=== PATIENT | female | born 1985 | race American Indian/Alaskan Native ===

== ENCOUNTER 2018-03-12 10:37 | Emergency (ER) | payer SELFPAY ==
[2018-03-12 11:03] VITALS: BP 141/78
--- NOTE | 2018-03-12 11:48 | Emergency Department Report ---
ED ENT HPI - General Chief complaint: Medical Clearance Stated complaint: TOOTHACHE Time Seen by Provider: 03/12/18 11:45 Source: patient Mode of arrival: Ambulatory Limitations: No Limitations - History of Present Illness Initial comments: 32-year-old female past medical history obesity, asthma presents with complaint of right upper incisor discomfort. Patient states she has mouthguard/and this line which was adjusted within the last week. Patient states that since she inserted new mouthguard her right upper incisor has been aching. Patient has a sensitivity to cold and warm foods. Patient denies any pus or blood drainage from mouth. Patient denies any difficulty breathing. States that eating is somewhat painful when food makes contact with her right upper incisor. No trismus or drooling, patient speaking in full sentences. MD complaint: tooth pain Onset/Timin -: week(s) Severity: moderate Severity scale (0 -10): 6 Quality: aching Consistency: intermittent Worsens with: eating Associated Symptoms: toothache - Related Data Home Medications Medication Instructions Recorded Confirmed Last Taken Vitamin 1 tab PO DAILY 02/06/16 02/06/16 Unknown Valtrex 1 g PO DAILY 02/06/16 02/06/16 02/05/16 20:00 Previous Rx's Medication Instructions Recorded Last Taken Type Ibuprofen [Motrin 600 MG tab] 600 mg PO Q8H PRN #30 tablet 02/07/16 Unknown Rx Lidocain2.5%/Prilocai2.5% [Emla] 5 gm TRANSDERMA ONCE #1 tube 02/07/16 Unknown Rx Benzocaine [Orajel Liquid 20%] 1 ml MM Q6HR PRN #1 bottle 03/12/18 Unknown Rx Ibuprofen [Motrin] 800 mg PO Q8HR PRN #25 tablet 03/12/18 Unknown Rx Allergies Allergy/AdvReac Type Severity Reaction Status Date / Time No Known Allergies Allergy Verified 02/06/16 18:04 ED Dental HPI - General Chief complaint: Medical Clearance Stated complaint: TOOTHACHE Time Seen by Provider: 03/12/18 11:45 Source: patient Mode of arrival: Ambulatory Limitations: No Limitations - Related Data Home Medications Medication Instructions Recorded Confirmed Last Taken Vitamin 1 tab PO DAILY 02/06/16 02/06/16 Unknown Valtrex 1 g PO DAILY 02/06/16 02/06/16 02/05/16 20:00 Previous Rx's Medication Instructions Recorded Last Taken Type Ibuprofen [Motrin 600 MG tab] 600 mg PO Q8H PRN #30 tablet 02/07/16 Unknown Rx Lidocain2.5%/Prilocai2.5% [Emla] 5 gm TRANSDERMA ONCE #1 tube 02/07/16 Unknown Rx Benzocaine [Orajel Liquid 20%] 1 ml MM Q6HR PRN #1 bottle 03/12/18 Unknown Rx Ibuprofen [Motrin] 800 mg PO Q8HR PRN #25 tablet 03/12/18 Unknown Rx Allergies Allergy/AdvReac Type Severity Reaction Status Date / Time No Known Allergies Allergy Verified 02/06/16 18:04 ED Review of Systems ROS: Stated complaint: TOOTHACHE Other details as noted in HPI Constitutional: denies: chills, fever Eyes: denies: eye pain, eye discharge, vision change ENT: dental pain. denies: ear pain, throat pain Respiratory: denies: cough, shortness of breath, wheezing Cardiovascular: denies: chest pain, palpitations Endocrine: no symptoms reported Gastrointestinal: denies: abdominal pain, nausea, diarrhea Genitourinary: denies: urgency, dysuria, discharge Musculoskeletal: denies: back pain, joint swelling, arthralgia Skin: denies: rash, lesions Neurological: denies: headache, weakness, paresthesias Psychiatric: denies: anxiety, depression Hematological/Lymphatic: denies: easy bleeding, easy bruising ED Past Medical Hx - Past Medical History Hx Hypertension: No Hx Congestive Heart Failure: No Hx Diabetes: No Hx Deep Vein Thrombosis: No Hx Renal Disease: No Hx Sickle Cell Disease: No Hx Seizures: No Hx Asthma: (as child) Hx COPD: No Hx HIV: No - Surgical History Additional Surgical History: I.U.D. insertion 2010 - Social History Smoking Status: Never Smoker - Medications Home Medications: Home Medications Medication Instructions Recorded Confirmed Last Taken Type Vitamin 1 tab PO DAILY 02/06/16 02/06/16 Unknown History Valtrex 1 g PO DAILY 02/06/16 02/06/16 02/05/16 20:00 History Ibuprofen [Motrin 600 MG tab] 600 mg PO Q8H PRN #30 tablet 02/07/16 Unknown Rx Lidocain2.5%/Prilocai2.5% [Emla] 5 gm TRANSDERMA ONCE #1 tube 02/07/16 Unknown Rx Benzocaine [Orajel Liquid 20%] 1 ml MM Q6HR PRN #1 bottle 03/12/18 Unknown Rx Ibuprofen [Motrin] 800 mg PO Q8HR PRN #25 tablet 03/12/18 Unknown Rx ED Physical Exam - General Limitations: No Limitations General appearance: alert, in no apparent distress - Head Head exam: Present: atraumatic, normocephalic - Eye Eye exam: Present: normal appearance, PERRL, EOMI - ENT ENT exam: Present: mucous membranes moist - Expanded ENT Exam Expanded Teeth exam: Present: dental caries, fractured tooth #, dental tenderness # 1 - Dental Tenderness (some dental tenderness here) - Neck Neck exam: Present: normal inspection - Respiratory Respiratory exam: Present: normal lung sounds bilaterally. Absent: respiratory distress - Cardiovascular Cardiovascular Exam: Present: regular rate, normal rhythm. Absent: systolic murmur, diastolic murmur, rubs, gallop - GI/Abdominal GI/Abdominal exam: Present: soft, normal bowel sounds - Extremities Exam Extremities exam: Present: normal inspection - Back Exam Back exam: Present: normal inspection - Neurological Exam Neurological exam: Present: alert, oriented X3 - Psychiatric Psychiatric exam: Present: normal affect, normal mood - Skin Skin exam: Present: warm, dry, intact, normal color. Absent: rash ED Course Vital Signs 03/12/18 10:56 Temperature 98.2 F Pulse Rate 71 Respiratory 16 Rate Blood Pressure 141/78 O2 Sat by Pulse 97 Oximetry ED Medical Decision Making - Medical Decision Making A/P: Toothache 1-Motrin 800mg when necessary, Orajel. There are no clinical signs of infection on inspection of oral cavity and gumline 2-we secondary to male adjusted mouthguard. I informed patient she should follow up with her dentist to have readjustment of her mouthguard. I advised to return to the ED for any pus drainage or significant gumline swelling. 3- I advised patient to use antiseptic mouthwash Critical care attestation.: If time is entered above; I have spent that time in minutes in the direct care of this critically ill patient, excluding procedure time. ED Disposition Clinical Impression: Toothache Disposition: TO HOME OR SELFCARE Is pt being admited?: No Does the pt Need Aspirin: No Condition: Stable Instructions: Toothache (ED) Prescriptions: Benzocaine [Orajel Liquid 20%] 1 ml MM Q6HR PRN #1 bottle PRN Reason: Toothache Ibuprofen [Motrin] 800 mg PO Q8HR PRN #25 tablet PRN Reason: Toothache Referrals: [facility] [Outside] - 3-5 Days Forms: Work/School Release Form(ED) Time of Disposition: 12:01
== END 2018-03-12 12:12 | disposition home or self-care (01) ==
LOC: ED 10:37
DX: K08.89 Other specified disorders of teeth and supporting structures (principal)
CPT/HCPCS: 99282

== ENCOUNTER 2022-07-03 09:07 | Emergency (ER) | payer BC ==
[2022-07-03 09:32] VITALS: BP 146/84
--- NOTE | 2022-07-03 13:32 | Emergency Department Report ---
<SOLOMONPATRICK - Last Filed: 07/03/22 14:30> ED General Adult HPI - General Chief complaint: Eye Problems Stated complaint: LOOSING EYE SIGHT/CHEST PAIN/ HEADACHE Time Seen by Provider: 07/03/22 12:47 Source: patient Mode of arrival: Ambulatory Limitations: No Limitations - History of Present Illness Initial comments: 37-year-old female reports to the ER with complaints of intermittent peripheral vision loss on the left side and double vision. Patient also reported some chest tightness prior to work this morning that lasted less than a minute. Patient denies any cardiac history. Patient reports that she does have a history of anxiety. Patient reports her vision has since resolved since she checked into the ER. Patient denies any eye pain. Patient does report she is under a great deal of stress due to planning of a trip that is coming up in less than a month. Patient reports she has medication for anxiety but has not taken it for over a month. Currently patient denies any chest pain, no shortness of breath, no headaches, no dizziness, no loss of vision, no blurry vision, no double vision, no weakness, no tingling this. Patient denies any acute symptoms at this time. Patient reports her last physical was a 2 to 3 months ago. Patient reports her last eye exam was 1 year ago. Severity scale (0 -10): 5 - Related Data Home Medications Medication Instructions Recorded Confirmed Last Taken Vitamin 1 tab PO DAILY 02/06/16 02/06/16 Unknown Valtrex 1 g PO DAILY 02/06/16 02/06/16 02/05/16 20:00 Previous Rx's Medication Instructions Recorded Last Taken Type Ibuprofen [Motrin 600 MG tab] 600 mg PO Q8H PRN #30 tablet 02/07/16 Unknown Rx Lidocain2.5%/Prilocai2.5% [Emla] 5 gm TRANSDERMA ONCE #1 tube 02/07/16 Unknown Rx Benzocaine [Orajel Liquid 20%] 1 ml MM Q6HR PRN #1 bottle 03/12/18 Unknown Rx Ibuprofen [Motrin] 800 mg PO Q8HR PRN #25 tablet 03/12/18 Unknown Rx Allergies Allergy/AdvReac Type Severity Reaction Status Date / Time No Known Allergies Allergy Verified 02/06/16 18:04 ED Review of Systems Comment: All other systems reviewed and negative Eyes: vision change (Has not resolved since being in the ER.). denies: eye pain, eye discharge Respiratory: denies: shortness of breath Cardiovascular: chest pain (Happen on her way to work this morning but denies chest pain at this time.) ED Past Medical Hx - Past Medical History Previous Medical History?: Yes Hx Hypertension: No Hx Congestive Heart Failure: No Hx Diabetes: No Hx Deep Vein Thrombosis: No Hx Renal Disease: No Hx Sickle Cell Disease: No Hx Seizures: No Hx Asthma: Yes (as child) Hx COPD: No Hx HIV: No Additional medical history: Morbid obesity, anxiety - Surgical History Past Surgical History?: Yes Additional Surgical History: I.U.D. insertion 2010 - Social History Smoking Status: Never Smoker - Medications Home Medications: Home Medications Medication Instructions Recorded Confirmed Last Taken Type Vitamin 1 tab PO DAILY 02/06/16 02/06/16 Unknown History Valtrex 1 g PO DAILY 02/06/16 02/06/16 02/05/16 20:00 History Ibuprofen [Motrin 600 MG tab] 600 mg PO Q8H PRN #30 tablet 02/07/16 Unknown Rx Lidocain2.5%/Prilocai2.5% [Emla] 5 gm TRANSDERMA ONCE #1 tube 02/07/16 Unknown Rx Benzocaine [Orajel Liquid 20%] 1 ml MM Q6HR PRN #1 bottle 03/12/18 Unknown Rx Ibuprofen [Motrin] 800 mg PO Q8HR PRN #25 tablet 03/12/18 Unknown Rx ED Physical Exam - General Limitations: No Limitations General appearance: alert, in no apparent distress - Head Head exam: Present: atraumatic, normocephalic - Eye Eye exam: Present: normal appearance, PERRL, EOMI Pupils: Present: normal accommodation - Expanded Eye Exam Expanded Pupils: Regular, Round: Bilateral, Reactive: Bilateral Sclera/Conjunctival: Normal Inspection: Bilateral Visual acuity (R) = 20/: 60 Visual acuity (L) = 20/: 60 With correction: Yes (20/40 both) - ENT ENT exam: Present: mucous membranes moist - Neck Neck exam: Present: normal inspection - Respiratory Respiratory exam: Present: normal lung sounds bilaterally. Absent: respiratory distress, wheezes - Cardiovascular Cardiovascular Exam: Present: regular rate, normal rhythm, normal heart sounds. Absent: systolic murmur, diastolic murmur, rubs, gallop - GI/Abdominal GI/Abdominal exam: Present: soft, normal bowel sounds. Absent: distended, tenderness - Extremities Exam Extremities exam: Present: normal inspection - Back Exam Back exam: Present: normal inspection - Neurological Exam Neurological exam: Present: alert, oriented X3 - Psychiatric Psychiatric exam: Present: normal affect, normal mood - Skin Skin exam: Present: warm, dry, intact, normal color. Absent: rash ED Medical Decision Making - Medical Decision Making 37-year-old female reports to the ER with complaints of blurred vision and left peripheral vision loss intermittently that happened this morning. Patient also reports chest tightness for less than a minute. Patient reports a history of anxiety. Patient reports this morning on her way to work before symptoms started she had a lot of stress on her mind about an upcoming trip. Patient denies any shortness of breath, weakness, headaches, dizziness. Patient reports yesterday she arrived to the ED her double vision and her left peripheral vision returned. Patient denies any chest pain at this current moment. No concerns for cardiac involvement. As chest tightness came after her thinking about her stressful trip planning. On physical exam patient has no acute clinical findings. Peripheral exam performedperipheral exam within normal limits. Pupils are equal round and reactive. EOM intact with no pain. Eye acuity left 20/60 right 20/60 both 20/40. Patient informed to follow her eye provider as has been 1 year since her last eye exam. Patient also informed to follow back up with her primary care provider if her anxiety starts to become more recurrent. Patient also informed to decrease her stress with planning of the trip. Patient agrees with plan of care and verbalized understanding. No further work- up is needed at this time. Vital Signs 07/03/22 09:28 Temperature 98.7 F Pulse Rate 73 Respiratory 20 Rate Blood Pressure 146/84 [Right] O2 Sat by Pulse 100 Oximetry ED Disposition Clinical Impression: Visual disturbance Disposition: 01 HOME / SELF CARE / HOMELESS Is pt being admited?: No Condition: Good Instructions: Diplopia, Visual Disturbances Referrals: DIEGO BRO MD [Primary Care Provider] - 3-5 Days Time of Disposition: 13:32 <THEODORA RUIZ - Last Filed: 07/03/22 20:11> ED Review of Systems ROS: Stated complaint: LOOSING EYE SIGHT/CHEST PAIN/ HEADACHE Other details as noted in HPI ED Course Vital Signs 07/03/22 09:28 Temperature 98.7 F Pulse Rate 73 Respiratory 20 Rate Blood Pressure 146/84 [Right] O2 Sat by Pulse 100 Oximetry Critical care attestation.: If time is entered above; I have spent that time in minutes in the direct care of this critically ill patient, excluding procedure time. ED Disposition Is pt being admited?: No Does the pt Need Aspirin: No
== END 2022-07-03 14:10 | disposition home or self-care (01) ==
LOC: ED 09:07
DX: H53.9 Unspecified visual disturbance (principal); J45.909 Unspecified asthma, uncomplicated; Z79.899 Other long term (current) drug therapy
CPT/HCPCS: 99282